=== PATIENT | male | born 1995 | race Caucasian/White ===

== ENCOUNTER 2018-11-11 11:55 | Day surgery (SDC) | payer BC ==
[~2018-11-11 11:55] MED LIST: Buffered Lidocaine 1% SYRIN* 1 ML/SYRINGE INTRADERM ONE; Famotidine IV* 10 MG/ML 2 ML (20 mg) IV ONE; Lactated Ringers 1000 ML Bag* 1,000 ML IV SCH
[2018-11-11] MEDS ORDERED: Dexamethasone IV* 4 MG/ML 1 ML (4 MG) ONE (12:45)
[2018-11-11] MEDS ORDERED: Famotidine IV* 10 MG/ML 2 ML (20 mg) ONE (12:45)
[2018-11-11] MEDS ORDERED: Clindamycin 900 MG/D5W BAG(*) 900 MG/50 ML BAG IVPB ONE (13:24)
[2018-11-11] MEDS: Dexamethasone IV* 4 MG/ML 1 ML (4 MG) IV SLOW PU ONE ×2 (13:33→13:34)
[2018-11-11] MEDS ORDERED: ROPIVACAINE 5 MG/ML 30 ML BTL (0.5%) ONE (13:51)
[2018-11-11] MEDS ORDERED: fentaNYL* 50 MCG/ML 2 ML VIAL (100 MCG VIAL) ONE (13:53)
[2018-11-11] MEDS ORDERED: Lidocaine 1% MPF ** 5 ML VIAL ONE (13:53)
[2018-11-11] MEDS ORDERED: Midazolam* 1 MG/ML 2 ML VIAL (2 MG) ONE (13:53)
[2018-11-11] MEDS ORDERED: Ondansetron INJ* 2 MG/ML VIAL ONE (15:44)
[2018-11-11 17:32] VITALS: BP 130/77
--- NOTE | 2018-11-11 22:40 | OP ---
DATE OF OPERATION: 11/11/18 - [facility] DATE OF : 89 SURGEON: Kranthi Diggs MD. ANIMAL CONTROL SUPERVISOR: CHELSEY Verduzco. An mechanic assistant was needed for the entirety of the procedure to aid in positioning of the arm and retraction. ANESTHESIOLOGIST: Dr. Ryan. ANESTHESIA: General with peripheral nerve block. PRE-OP DIAGNOSIS: Left displaced scaphoid fracture with butterfly fragment. POST-OP DIAGNOSIS: Left displaced scaphoid fracture with butterfly fragment. OPERATIVE PROCEDURE: Open reduction and internal fixation of left scaphoid fracture. INDICATIONS: Mr. Red has a high-energy left scaphoid fracture with butterfly fragment. We talked about his treatment options, risks of non-union here is exceedingly high. He understands and wants to proceed with fixation of the fracture. ESTIMATED BLOOD LOSS: 5 mL. COMPLICATIONS: None. FINDINGS: See above and below. DESCRIPTION OF PROCEDURE: Teofilo was seen in the preoperative holding area. The correct site, side, and procedure were identified. We came back to the operating room, the arm was prepped and draped in the usual fashion, and a time- out was performed. The nerve block had already been performed. The arm was exsanguinated with the Esmarch and the tourniquet was inflated to 250 mmHg. I made a volar approach and made an oblique incision up towards the base of the thumb metacarpal. This was brought back with just a little bit proximally over the FCR tendon sheath. Dissection was carried down distally. The thenar muscles were split. The scaphoid tubercle was palpated. I incised the soft tissue down longitudinally along the long axis of the scaphoid as it came proximal. I did end up incising just a little bit of the volar carpal ligament including the radioscaphocapitate ligament, however, I did not need to fully transect the ligament as the fracture was actually quite distal and so I had good exposure of his fracture without needing to release all the volar carpal ligaments. After I had the fracture exposed, I cleaned out the soft tissue about the fracture with dental pick and suction and irrigation and curette. Once I had the things nice and clean, I was able to visualize the butterfly fragment. I went ahead and put a dental pick on the proximal pole and reduced that back into the appropriate position. Once I was able to do that, I took another dental pick and reduced the butterfly fragment. I then passed a 0.35 K-wire across the distal pole through the fragment down into the proximal pole, that held the butterfly fragment nicely reduced. I then selected a guidewire for a standard Acutrak screw. This was placed down into center-center position, it was just a 1 mm off, but was close enough that I decided not to put anymore holes in the bone and just to accept the position of the wire. I performed a partial trapeziectomy to aid getting a little bit more dorsal on the scaphoid from my start point. Again, I may be could have been 1 more mm dorsal but it was not worth putting another hole in the bone and risking the fixation. After I had got my guidewire into the appropriate location, I measured and subtracted 4 and so I did a 26-mm screw. I then passed the wire down out the proximal fold of the scaphoid. I then drilled over the wire. I had to back up my provisional guidewire just a little bit to get the drill all the way down. Once I had it all the way down, I then readvanced my provisional K-wire and then placed the 26-mm screw. This went down nicely and was completely emerged in the bone. I had incredible fixation, it was a great bite. There was excellent compression across all the fragments. I was able to easily remove the K-wire that was holding the butterfly fragments reduced and the butterfly fragment was very compressed into place. At this point, everything was looking good. I got final fluoroscopic imaging. I irrigated out the wound. I repaired the volar soft tissues with 4-0 PDS suture. The skin was closed with 4- 0 Monocryl and Steri- Strips. No additional Marcaine was needed due to the block. The wound was dressed with Steri-Strips, 4x4's, sterile Webril and then thumb spica splint with the IP joint free was applied. He was taken to the recovery room in stable condition. [id number]/[facility] #: [id number] LETICIA
== END 2018-11-11 17:45 | disposition home or self-care (01) ==
LOC: OREAST 11:55
PROVIDERS: ATTEND Orthopaedic Surgery Hand Surgery
DX: S62.002A Unspecified fracture of navicular [scaphoid] bone of left wrist, initial encounter for closed fracture (principal); S63.286A Dislocation of proximal interphalangeal joint of right little finger, initial encounter; V18.0XXA Pedal cycle driver injured in noncollision transport accident in nontraffic accident, initial encounter; Y93.55 Activity, bike riding; Y92.89 Other specified places as the place of occurrence of the external cause; G89.18 Other acute postprocedural pain
CPT/HCPCS: 76000; C1713; C1769; C1776; J1100; J2250; J2405; J2795; J3010